=== PATIENT | female | born 1980 | race Caucasian/White ===

== ENCOUNTER 2017-09-03 22:17 | Emergency (ER) | payer MEDICAID, OTHER ==
[~2017-09-03] VITALS: Ht 154.9 cm; Wt 65.0 kg
[~2017-09-03 22:17] MED LIST: ADDE10TA PO; FLUO20 PO
--- NOTE | 2017-09-03 23:51 | RADRPT ---
EXAM DATE/TIME: 09/03/2017 23:24 [place] COMPARISON: No previous studies available for comparison. INDICATIONS : Right hand third digit pain. Patient states she jammed her finger yesterday. MEDICAL HISTORY : None. SURGICAL HISTORY : None. ENCOUNTER: Initial ACUITY: 2 days PAIN SCORE: 7/10 LOCATION: Right hand, third digit. FINDINGS: Examination of the third digit of the right hand demonstrates no evidence of fracture or dislocation. No radiopaque foreign bodies are seen. The soft tissues are intact. CONCLUSION: 1. No evidence of recent bony injury. Case Patel MD on September 03, 2017 at 23:49 Board Certified Radiologist. This report was verified electronically.
--- NOTE | 2017-09-04 00:56 | PD ---
HPI Chief Complaint: Injury Time Seen by Provider: 00:47 Travel History International Travel<30 days: No Contact w/Intl Traveler<30days: No Traveled to known affect area: No History of Present Illness HPI 37-year-old white female presents to emergency Department with complaints of right hand pain after having it caught in a shopping cart yesterday afternoon. The patient states that she had a pulled her hand out from the shopping cart. She had in a splint for the last day but has become increasing painful, swollen and bruised. She states the majority of the pain is in her middle finger but is always outer palm. She denies any numbness or tingling. Weakness due to pain. Pain is moderate. Some alleviating discomfort with immobilization and exacerbated by movement. No sensory changes. PFSH Past Medical History ADD: Yes ADHD: Yes Depression: Yes Diminished Hearing: No Gastrointestinal Disorders: Yes (celiac) Tetanus Vaccination: Unknown ?: Not LMP: 08/28/2017 : 3 Para: 3 Tubal Ligation: Yes Past Surgical History Section: Yes (X3) Social History Alcohol Use: Yes (socially) Tobacco Use: Yes Substance Use: No Allergies-Medications (Allergen,Severity, Reaction): Coded Allergies: gluten (Unverified Allergy, Unknown, PANCREAS SWELLS, 05/08/17) Reported Meds & Prescriptions Reported Meds & Active Scripts Active Reported Prozac 20 Mg Cap (Fluoxetine HCl) 20 Mg Cap 20 Mg PO DAILY Adderall (Amphetamine/Dextroamphetamine) 10 Mg Tab 15 Mg PO QID Review of Systems Except as stated in HPI: all other systems reviewed are Neg Physical Exam Narrative GENERAL: This is a well-nourished, well-developed patient, in no apparent distress. SKIN: No rashes, ecchymoses or lesions. Warm and dry. HEAD: Atraumatic. Normocephalic. EYES: PERRL, EOMI, no discharge or injection. No scleral icterus. EARS: Clear NOSE: Nasal turbinates appear normal. THROAT: Mucosa pink and moist. Airway patent. NECK: Trachea midline. supple, moves head freely. LUNGS: Clear to auscultation. CV: Regular in rhythm. ABDOMEN: Soft nontender. EXT: No clubbing cyanosis. Patient has mild edema of the right middle finger. She has ecchymosis from the PIP down into the proximal phalanx of palm. She is able to fully extend and flex her finger freely. No gross instability. Intact median/ulnar/radial nerves. No pain in the wrist or elbow. Data Data Orders Orders Finger ([id number]) (09/03/17 22:54) Ed Discharge Order (09/04/17 00:51) [facility] Medical Decision Making Medical Screen Exam Complete: Yes Emergency Medical Condition: Yes Medical Record Reviewed: Yes Interpretation(s) Last 24 hours Impressions Finger X-Ray 09/03/17 2254 Signed Impressions: Service Date/Time: Sunday, September 03, 2017 23:24 - CONCLUSION: 1. No evidence of recent bony injury. Case Patel MD Differential Diagnosis MDM: High Differential diagnoses: Fracture, sprain, strain, dislocation, contusion, neurovascular injury Narrative Course X-ray of the right hand is negative for bony injury. Patient has declined any pain medication. She is placed in a large bulky splint. This right hand sprain Diagnosis Primary Impression: Sprain of right hand Qualified Codes: S63.91XA - Sprain of unspecified part of right wrist and hand , initial encounter Patient Instructions: General Instructions Departure Forms: Tests/Procedures, Work Release Special Instructions: No use of the right hand at work 3 days. Additional Instructions: Rest. Elevation. Splint for the next 2-3 days. 3 Advil every 6 hours. Ice for the next day or 2. Follow-up with a medical doctor in the next 3-5 days. Return to the ER for problems. Disposition: 01 DISCHARGE HOME Condition: Stable Jermaine Hugo Sep 04, 2017 00:56
== END 2017-09-04 01:15 | disposition home or self-care (01) ==
LOC: NEPD 22:17
DX: S63.91XA Sprain of unspecified part of right wrist and hand, initial encounter (principal); W23.0XXA Caught, crushed, jammed, or pinched between moving objects, initial encounter
CPT/HCPCS: 73140; 99283